=== PATIENT | female | born 1950 | race Caucasian/White ===

== ENCOUNTER → 2021-10-13 10:56 | Outpatient (REF) | payer MEDICARE, MEDICAID, SELFPAY ==
--- NOTE | ~2021-10-13 | XR_ITS ---
EXAMINATION: XR THORACIC SPINE CLINICAL INFORMATION: Pain. History malignant neoplasm kidney. COMPARISON: None TECHNIQUE: Thoracic spine is imaged in 4 views. FINDINGS: There is normal thoracic segmentation with 12 rib-bearing vertebrae of normal height and normal thoracic kyphosis. There is no thoracic vertebral compression or suspicious osseous lesion or paraspinal soft tissue swelling. No vertebral compression, spondylolisthesis, or destructive process. There are mild multilevel degenerative disc changes with scattered bridging anterior and right lateral osteophytes. XR/XR thoracic spine 3V IMPRESSION: -Multilevel thoracic degenerative disc changes with thoracic vertebral osteophytes. -No thoracic vertebral compression, spondylolisthesis, or suspicious bony lesion.
--- NOTE | ~2021-10-13 | XR_ITS ---
EXAMINATION: XR LUMBOSACRAL SPINE CLINICAL INFORMATION: Pain. History malignant neoplasm kidney. COMPARISON: Radiographs thoracic spine 10/13/2021. TECHNIQUE: Lumbar spine is imaged in 3 views. FINDINGS: There is normal lumbar segmentation with 5 nonrib-bearing lumbar vertebrae of normal height and normal lumbar lordosis. No lumbar vertebral compression, destructive process, or spondylolisthesis. There are degenerative disc changes L3-L4, L4-L5, and L5-S1 with disc narrowing and mild vertebral spurring. There is no suspicious bony lesion or paraspinal soft tissue swelling. There are 2 benign rim calcifications right paralumbar region each approximately 1 cm size of uncertain significance, possibly vicente. There are fine chain ana overlying upper left renal fossa. Visualized sacrum are unremarkable. XR/XR lumbar spine 2-3V IMPRESSION: -Degenerative disc changes L3-S1. -No vertebral compression, spondylolisthesis, or suspicious bony lesion.
--- NOTE | ~2021-10-13 | NM_ITS ---
EXAMINATION: NM BONE SCAN OF THE WHOLE BODY CLINICAL INFORMATION: Pain all over, ribs and back. Patient states left kidney removed 2020 due to cancer. COMPARISON: No previous bone scan is available for comparison. Radiographs of the lumbosacral spine, bilateral ribs, and thoracic spine dated 10/13/2021 are available for comparison. TECHNIQUE: Multiple gamma scintillation camera images of the whole body were performed 2.5 hours following the intravenous administration of 36 mCi Tc-99m MDP. FINDINGS: In the head, no significant abnormalities are present. In the thoracic cage and upper extremities, there is minimally increased activity in the acromioclavicular and sternoclavicular joints bilaterally. In the spine, no foci of mildly increased activity in the right costovertebral junction of T7 and T8 and the left costovertebral junction of T9. Minimally increased activity in the left posterior elements at L5-S1 is also noted. In the pelvis, no significant abnormalities are present. In the lower extremities, there is mildly increased activity in the patellar compartments of both knees and in mild foci in the mid feet bilaterally, likely laterally and slightly more intense on the right. No other definite bony abnormalities are noted. The urinary bladder and faint visualization of the right kidney are noted. The left kidney has been resected and is not visualized. NM/[place] bone scan whole body IMPRESSION: 1. Mild nonspecific abnormalities are noted as described above and these are all likely arthritic or traumatic in etiology. None of these abnormalities is strongly suspicious for metastatic disease. 2. Absent left kidney.
--- NOTE | ~2021-10-13 | XR_ITS ---
EXAMINATION: XR RIBS, BILATERAL CLINICAL INFORMATION: Pain. History malignant neoplasm kidney. COMPARISON: Radiographs thoracic and lumbar spine 10/13/2021, nuclear bone scan 10/13/2021. TECHNIQUE: Frontal view chest and 3 views of the ribs are obtained for a total of 4 views. FINDINGS: Lungs clear. No airspace consolidation or visible mass, pleural reaction, or effusion. Heart is within normal size. The hilar and mediastinal contours are unremarkable. There is no visible rib fracture or rib destructive process. Multilevel degenerative changes are present thoracic spine with bridging osteophytes, more numerous on right. There is mineralization in the bilateral superior rotator cuff, greater on right consistent with calcific tendinosis. There is also some chondrocalcinosis involving the bilateral superior acromioclavicular capsule. No erosive change. XR/XR ribs BI min 4V w CXR1V IMPRESSION: -Lungs clear. No airspace consolidation or effusion. -No suspicious bony lesion. -Multilevel degenerative changes/bridging osteophytes thoracic spine. -Bilateral shoulder calcific tendinosis, greater on right.
== END ==
LOC: HO.NUCMED 10:56
PROVIDERS: PCP Internal Medicine Geriatric Medicine; Visit Provider Internal Medicine Geriatric Medicine
DX: R52 Pain, unspecified (principal); Z85.528 Personal history of other malignant neoplasm of kidney; Z90.5 Acquired absence of kidney
CPT/HCPCS: 71111; 72072; 72100; 78306; A9503

== ENCOUNTER 2023-06-23 10:04 | Outpatient (REF) | payer OTHER, SELFPAY ==
[2023-06-23 11:59] LABS: Alanine Aminotransferase 20 U/L (0-31); Albumin Level 4.1 g/dL (3.5-5.0); Alkaline Phosphatase 104 U/L (39-117); Anion Gap 12 (12-20); Aspartate Amino Transferase 27 U/L (5-31); Bilirubin Direct 0.2 mg/dL (0.0-0.5); Bilirubin Total 0.6 mg/dL (0.0-1.0); Blood Urea Nitrogen 24 mg/dL (9-16); Calcium 9.6 mg/dL (8.4-10.2); Carbon Dioxide 26 mmol/L (22-29); Chloride 107 mmol/L (96-108); Cholesterol 127 mg/dL (<200); Estimated Glomerular Filt Rate 30; Glucose Random 200 mg/dL (60-115); HDL Cholesterol 28 mg/dL (>40); LDL Cholesterol Calculated 43 mg/dL (<100); Potassium 4.8 mmol/L (3.3-5.1); Sodium 140 mmol/L (135-145); Triglycerides 281 mg/dL (<150)
[2023-06-23 12:36] LABS: Creatinine Urine 105.02 mg/dL; Microalbum/Creatinine Ratio Ur 299.9 ug/mg cr (<30)
== END 2023-06-23 10:05 | disposition home or self-care (01) ==
LOC: HO.HHCL 10:04
PROVIDERS: Visit Provider Internal Medicine Geriatric Medicine
DX: E11.65 Type 2 diabetes mellitus with hyperglycemia (principal); Z79.4 Long term (current) use of insulin; E11.69 Type 2 diabetes mellitus with other specified complication; E78.5 Hyperlipidemia, unspecified; Z90.5 Acquired absence of kidney
CPT/HCPCS: 36415; 80048; 80061; 80076; 82043; 82570

== ENCOUNTER 2024-02-19 11:27 | Outpatient (REF) | payer OTHER, SELFPAY ==
[2024-02-19 14:23] LABS: Anion Gap 11 (12-20); Blood Urea Nitrogen 29 mg/dL (9-16); Calcium 9.4 mg/dL (8.4-10.2); Carbon Dioxide 23 mmol/L (22-29); Chloride 108 mmol/L (96-108); Estimated Glomerular Filt Rate 24; Glucose Random 184 mg/dL (60-115); Potassium 4.1 mmol/L (3.3-5.1); Sodium 138 mmol/L (135-145)
== END 2024-02-19 11:28 | disposition home or self-care (01) ==
LOC: HO.HHCL 11:27
PROVIDERS: Visit Provider Internal Medicine Geriatric Medicine
DX: E11.65 Type 2 diabetes mellitus with hyperglycemia (principal); Z79.4 Long term (current) use of insulin; Z90.5 Acquired absence of kidney
CPT/HCPCS: 36415; 80048

== ENCOUNTER 2024-03-08 10:45 | Outpatient (REF) | payer OTHER, SELFPAY ==
[2024-03-08 13:44] LABS: Anion Gap 9 (12-20); Blood Urea Nitrogen 23 mg/dL (9-16); Calcium 9.2 mg/dL (8.4-10.2); Carbon Dioxide 27 mmol/L (22-29); Chloride 105 mmol/L (96-108); Estimated Glomerular Filt Rate 30; Glucose Random 171 mg/dL (60-115); Potassium 4.2 mmol/L (3.3-5.1); Sodium 137 mmol/L (135-145)
== END 2024-03-08 10:46 | disposition home or self-care (01) ==
LOC: HO.HHCL 10:45
PROVIDERS: Visit Provider Internal Medicine Geriatric Medicine
DX: E11.22 Type 2 diabetes mellitus with diabetic chronic kidney disease (principal); N18.30 Chronic kidney disease, stage 3 unspecified; E11.65 Type 2 diabetes mellitus with hyperglycemia; Z79.4 Long term (current) use of insulin; Z90.5 Acquired absence of kidney
CPT/HCPCS: 36415; 80048